=== PATIENT | male | born 1980 | race Caucasian/White ===

== ENCOUNTER 2023-10-20 16:02 | Emergency (ER) | payer BC, SELFPAY ==
[2023-10-20 16:13] VITALS: BP 138/99
[2023-10-20 16:43] LABS: % Basophils 0.5 % (0-2); % Eosinophils 1.8 % (0-6); % Immature Granulocytes 0.3 % (0-0.5); % Lymphocytes 34.3 % (20.5-51.1); % Neutrophils 57.1 % (42.2-75.2); Absolute Basophils 0.1 10^3/uL (0-0.2); Absolute Eosinophils 0.2 10^3/uL (0-0.7); Absolute Lymphocytes 3.3 10^3/uL (1.2-3.4); Absolute Monocytes 0.6 10^3/uL (0.1-0.6); Absolute Neutrophils 5.5 10^3/uL (1.4-6.5); Hematocrit 42.1 % (39.0-52.0); Hemoglobin 13.8 g/dL (13.0-18.0); Mean Corp Hgb Conc. 32.8 g/dL (33.0-37.0); Mean Corpuscular Hgb 29.7 pg (27.0-31.0); Mean Corpuscular Volume 90.7 fL (80.0-94.0); Nucleated Red Blood Cells % 0 % (-); Platelet Count 364 10^3/uL (130-400); Red Blood Cell Count 4.64 10^6/uL (4.70-6.10); Red Cell Dist. Width 12.7 % (11.5-14.5); White Blood Cell Count 9.6 10^3/uL (4.8-10.8)
[2023-10-20 16:55] LABS: ALT (SGPT) 20 U/L (0-50); AST (SGOT) 22 U/L (17-59); Albumin 4.7 g/dl (3.5-5.0); Alkaline Phosphatase 74 U/L (38-126); Blood Urea Nitrogen 16 mg/dl (9-20); Calcium 10.1 mg/dl (8.4-10.2); Carbon Dioxide 27 mmol/L (22-30); Chloride 103 mmol/L (98-107); Glucose 96 mg/dl (70-99); Potassium 4.4 mmol/L (3.5-5.1); Sodium 139 mmol/L (135-145); Total Bilirubin 0.6 mg/dl (0.2-1.3); Total Protein 7.4 g/dl (6.3-8.2); eGFR > 60.00
[2023-10-20 17:09] LABS: Troponin I < 0.012 ng/ml
[2023-10-20 17:49] VITALS: BP 138/90
[2023-10-20 17:50] VITALS: BP 138/90
[2023-10-20 17:53] VITALS: BMI 33.4
[2023-10-20 18:00] VITALS: BP 128/86
--- NOTE | 2023-10-20 18:17 | ED.GENMED ---
History of Present Illness
General
Chief Complaint: Cold/Flu/URI Symptoms
Source: patient
Time Seen by Provider: 10/20/23 18:01
Travel History
Have you had any contact with someone who has COVID-19?: No
Do you have any symptoms of coronavirus? Fever > 100 degrees, chills, cough, shortness of breath, sore throat, loss of taste or smell, muscle aches, or headache?: No
History of Present Illness
History of Present Illness:
43-year-old male with past medical history of hypertension presenting to the emergency department for evaluation of URI-like symptoms that began around Friday of last describing symptoms to be scratchy throat, nasal congestion and some fatigue.
Over the weekend started with a cough productive of a tannish sputum, today felt a little bit of chest tightness prompting him to come to the ER. He states about 2 weeks prior to this he had some mild URI-like symptoms that lasted 4 days and
resolved on their own. Denies any fevers. No known sick contacts, recent travel or recent antibiotics. No other concerns at this time.
Past History
Past History
ED Past Medical History: HTN
ED Past Surgical History: None
Social History
Tobacco: Non-smoker
Alcohol: None
Drug: None
Living: with family
Employment: Employed
Review of Systems
Review of Systems
All Other Systems: ROS reviewed and negative except as documented in HPI and ROS
Phy Exam
Physical Exam
Physical Exam:
GENERAL: Alert , in no apparent distress
EYE: conjunctiva clear
NECK: Supple
ENT: o/p clr, mmm.
CARDIAC: Regular rate and rhythm
LUNGS: Clear breath sounds bilaterally, no acute respiratory distress, no wheezes/rales/rhonchi
NEUROLOGICAL: Alert and oriented
SKIN: Warm and dry, skin intact.
MUSCULOSKELETAL: well perfused.
PSYCH: Normal and appropriate interaction.
Scores
Heart Failure Risk
Heart Failure Risk Score: Not Applicable
Heart Score for Chest Pain Patients
STEMI patient?: Not applicable
Withdrawal Assessment of Alcohol
Withdrawal Assessment Completed?: Not applicable
Course
Orders/Labs/Results
Orders:
Orders
10/20/23 16:09
EKG [Electrocardiogram (*1)] Urgent
Reason for Study: Chest Pain
EKG- Treatment ONCE
10/20/23 16:33
Complete Blood Count/With Diff Urgent
Comprehensive Metabolic Panel Urgent
Troponin I Urgent
10/20/23 18:11
CR Chest - 2 Views Urgent
Comment:
Reason For Exam: URI like symptoms
Abnormal Lab Results
10/20/23
16:33
RBC 4.64 L 10^6/uL
(4.70-6.10)
MCHC 32.8 L g/dL
(33.0-37.0)
10/20/23 16:33
10/20/23 16:33
Vital Signs
Initial and Last Documented VS:
Initial Vital Signs
Temp Pulse Resp BP Pulse Ox
98.3 F 57 16 138/99 98
10/20/23 16:13 10/20/23 16:13 10/20/23 16:13 10/20/23 16:13 10/20/23 16:13
Last Documented Vital Signs
Temp Pulse Resp BP Pulse Ox
98.3 F 64 20 121/96 96
10/20/23 16:13 10/20/23 18:43 10/20/23 18:43 10/20/23 19:17 10/20/23 19:18
MDM/Problems Addressed
Differential Diagnosis Includes:
COVID, flu, other viral URI, pneumonia, no concern for atypical ACS presentation
MDM/Problems Addressed:
43-year-old male presenting emergency department for evaluation of URI-like symptoms that been going on for approximately 1 week. He arrives to the emergency department afebrile and otherwise hemodynamically stable. He is in no acute respiratory
distress. Labs have been initiated in triage and are all within normal limits. EKG nonischemic. Will obtain chest x-ray to evaluate for possible pneumonia. Suspect viral etiology is most likely. Anticipate discharge home with supportive
measures.
*Radiology
Radiology exam reviewed: preliminary read by ED provider (Normal chest x-ray)
*Pulse Oximetry
Patient hypoxic: no
*EKG
Interpreted by ED Provider?: Yes
Comparison EKG: no comparison EKG present
Heart Rate: 56
Rate: bradycardiac
Rhythm: sinus
Ischemia: no ischemia
*Logistics Engineer Interpretation
Rate: normal
Rhythm: sinus
*Critical Care Note
Total Time (30-74mins, 75-104mins- exclusive of procedures): Not Applicable
Patient Management
Escalation/DeEscalation of care consider admission/obs:
Patient's chest x-ray is unremarkable. He remains hemodynamically stable and in no acute distress. Prescription for Medrol pack given. I also prescribed the patient Zithromax for him to take if he remains symptomatic despite the Medrol pack and
if he does not feel he is improving. Patient expressed understanding and is agreeable with this plan. Aware of return precautions emergency department. Stable for discharge home.
ED Attending Note
-
Portions of this chart may have been created with voice recognition software.� Occasional wrong word or��sound alike� substitutions may have occurred due to the inherent limitations of voice recognition software.
Discharge Plan
Departure
Patient Disposition: Home (Routine Discharge)
Date of Disposition: 10/20/23
Time of Disposition: 19:09
Patient with high blood pressure during this ER visit?: Yes
Discharge Problem:
URI (upper respiratory infection)
Instructions: Cough, Adult ED
Prescriptions:
New
methylprednisolone [Medrol (Moshe)] 4 mg tablets,dose pack
4 mg PO DIRECTED Qty: 21 0RF
azithromycin [Zithromax Z-Moshe] 250 mg tablet
250 mg PO DAILY 6 Days Qty: 6 0RF
Rx Instructions:
Take 2 tabs day 1 and 1 tab remaining days
Referrals:
John Bland MD [Family Provider] -
Interventions
Interventions:
*ED COVID-19 Vaccine History Last Done: 10/20/23 16:13
*Nursing Disposition Last Done: 10/20/23 19:21
ED- Pulmonary Assessment Last Done: 10/20/23 17:50
Discharge Date and Time
Discharge Date/Time: 10/20/23 19:22
Print Language: POLISH
[2023-10-20 19:17] VITALS: BP 121/96
== END 2023-10-20 19:22 | disposition home or self-care (01) ==
LOC: EMR 16:02
PROVIDERS: EMERGENCY PHYSICIAN Emergency Medicine; FAMILY PHYSICIAN Family Medicine
DX: J06.9 Acute upper respiratory infection, unspecified (principal); I10 Essential (primary) hypertension
CPT/HCPCS: 99285; 71046; 80053; 84484; 85025; 93005

== ENCOUNTER 2024-07-28 09:31 | Emergency (ER) | payer BC, SELFPAY ==
[2024-07-28 09:42] VITALS: BP 151/99
--- NOTE | 2024-07-28 10:11 | ED.GENMED ---
History of Present Illness
General
Chief Complaint: Breathing Problem
Source: patient
Exam Limitations: none
Time Seen by Provider: 07/28/24 09:53
Nursing documentation reviewed up to this point in time: agreed with
History of Present Illness
History of Present Illness:
44-year-old male with history of hypertension, noncompliant with medication presents for a sudden onset of upper back pain while at work today at 5 AM. Patient says he was just standing there and he suddenly felt 3 out of 10 back discomfort.
Within 15 minutes it became a 8 out of 10 and he felt like he needed to hunch over. He could not get a deep breath. He says that over time the symptoms have eased up and now he has only minimal discomfort. He still feels like he cannot take a
full deep breath although he is not having any painful breathing. He has not had a cough or cold symptoms. No recent long travel but he did drive 3 hours in the car 3 days ago. He has never had a blood clot in his legs or his lungs. There is no
leg swelling. He did take some [id number] 'back pain relief' medication that is an NSAID he has no chronic back pain issues, no coronary artery disease history personally or in his family, he is a former smoker but quit 15 years ago. He
drinks alcohol several times a week
Past History
Past History
ED Past Medical History: HTN
ED Past Surgical History: None
Social History
Tobacco: Non-smoker
Alcohol: None
Drug: None
Living: with family
Employment: Employed
Phy Exam
Physical Exam
Physical Exam:
GENERAL: Alert , in no apparent distress
EYE: pupils equal and reactive
NECK: Supple
ENT: o/p clr, mmm.
CARDIAC: Regular rate and rhythm .
LUNGS: Clear breath sounds bilaterally, no acute respiratory distress, no wheezes/rales/rhonchi
ABDOMEN: Soft, without focal tenderness, no r/g, no cvat, normal bowel sounds
NEUROLOGICAL: Alert and oriented, no focal neuro deficits
SKIN: Warm and dry, skin intact.
MUSCULOSKELETAL: No edema, well perfused. neg darlyn's sign
PSYCH: Normal and appropriate interaction.
Course
Orders/Labs/Results
Orders:
Orders
07/28/24 10:20
Electrocardiogram (*1) Urgent
Reason for Study: Shortness of Breath
CT Chest/abd/pelvis Angio W/wo Urgent
Comment:
Reason For Exam: upper back pain sudden, sob; not pleuritic;
07/28/24 10:21
EKG- Treatment ONCE
07/28/24 10:31
Complete Blood Count/With Diff Urgent
Comprehensive Metabolic Panel Urgent
Lipase Urgent
PTT Urgent
Prothrombin Time Urgent
Troponin I Urgent
07/28/24 10:35
Add On- LAB Urgent
Tests Added?: LIPASE
07/28/24 11:13
COVID-19 Antigen Urgent
Source: Nasal Swab
Influenza A+B Rapid Molecular Urgent
HATTIE Source: Nasal Swab
Specimen Description:
07/28/24 12:39
Troponin I Urgent
07/28/24 13:18
EKG [Electrocardiogram (*1)] Urgent
Reason for Study: Shortness of Breath
EKG- Treatment ONCE
07/28/24 13:42
Metoprolol Xl [Toprol Xl] 25 mg PO NOW STA
Abnormal Lab Results
07/28/24
10:31
WBC 13.4 H 10^3/uL
(4.8-10.8)
Absolute Neuts (auto) 9.5 H 10^3/uL
(1.4-6.5)
Absolute Monos (auto) 1.1 H 10^3/uL
(0.1-0.6)
Lymphocytes % 18.8 L %
(20.5-51.1)
07/28/24 10:31
07/28/24 10:31
Vital Signs
Initial and Last Documented VS:
Initial Vital Signs
Temp Pulse Resp BP Pulse Ox
37.2 C 85 16 151/99 98
07/28/24 09:42 07/28/24 09:42 07/28/24 09:42 07/28/24 09:42 07/28/24 09:42
Last Documented Vital Signs
Temp Pulse Resp BP Pulse Ox
37.2 C 72 20 119/88 96
07/28/24 09:42 07/28/24 13:53 07/28/24 13:53 07/28/24 13:53 07/28/24 13:53
MDM/Problems Addressed
Differential Diagnosis Includes:
aortic dissection, aneurysm, acs, pe
MDM/Problems Addressed:
corina dinenno 44 y/o M
h/o htn, noncompliant
sudden mild to mod upper back pain at work 5 am today with SOB; got intense within about 15 minutes then eased up
here looks comfortable, bp initially 150/100 but down to 122/95
ekg nsr sinus arrhythmia and some artifact v1, v2; downward t wave aVF which is unchanged from last year
1st trop neg
ct C/A/P angio shows some mild ascending aortic ectasia (measuring 4 cm at the level of the pulmonary trunk; descending thoracic aorta at the same level is 2.4 cm )
I SPOKE WITH ED ATTENDING AND DR. KEITH (CT SURGERY) FOR THIS PATIENT
recommend outpatient f/u in [address] surgery after repeat CT scan
good bp/hr control
dr. espinoza recommended metoprolol
given rx for 30 day supp\\ly
strongly encouragd outpatietn f/u
cards f/u also recommended
pt is asytmpaomtic now
his 2nd trop and ekg are neg/unchanged
d/c home
*Critical Care Note
Total Time (30-74mins, 75-104mins- exclusive of procedures): Not Applicable
ED Attending Note
-
Portions of this chart may have been created with voice recognition software.� Occasional wrong word or��sound alike� substitutions may have occurred due to the inherent limitations of voice recognition software.
Discharge Plan
Departure
Patient Disposition: Home (Routine Discharge)
Date of Disposition: 07/28/24
Time of Disposition: 13:31
Patient with high blood pressure during this ER visit?: Yes
Condition: Fair
Covid-19: Not Applicable
Discharge Problem:
Back pain, Aortic ectasia, Hypertension
Instructions: Chest Pain DCA Follow Up
Prescriptions:
New
metoprolol succinate 25 mg tablet extended release 24 hr
25 mg PO DAILY Qty: 30 0RF
No Action
methylprednisolone [Medrol (Moshe)] 4 mg tablets,dose pack
4 mg PO DIRECTED Qty: 21 0RF
azithromycin [Zithromax Z-Moshe] 250 mg tablet
250 mg PO DAILY 6 Days Qty: 6 0RF
Rx Instructions:
Take 2 tabs day 1 and 1 tab remaining days
Referrals:
John Bland MD [Family Provider] -
Dhaval Keith MD [Active] - As needed
Stand Alone Forms: Return to Work
Activity Restrictions/Additional Instructions:
YOUR WORK UP TODAY REVEALS THAT YOUR THORACIC AORTA IS VERY SLIGHTLY DILATED
YOU SHOULD HAVE THIS RE-EVALUATED WITHIN 6 MONTHS WITH ANOTHER CAT SCAN
YOU CAN ASK YOUR FAMILY DOCTOR TO ORDER
THEN AFTER THAT YOU CAN SEE DR. KEITH FROM CARDIOTHORACIC SURGERY IN FOLLOW UP
FOR NOW
IT IS IMPORTANT YOU MANAGE YOUR BLOOD PRESSURE
TAKE METOPROLOL ONCE A DAY 25 MG
FOLLOW UP WITH A FAMILY DOCTOR WITHIN 1 WEEK
CALL TODAY FOR AN APPOINTMENT
YOU WILL NEED REFILLS FOR [facility] BLOOD PRESSURE MEDICATIONS
I ALSO REACHED OUT TO THE CARDIOLOGISTS TO HELP GET AN EXPEDITED APPT WITH THEM TOO - THEY CAN HELP MANAGE YOUR BLOOD PRESSURE
RETURN FOR: SEVERE SUDDEN WORSENING BACK OR CHEST PAIN, SHORTNESS OF BREATH, PASSING OUT ETC
Interventions
Interventions:
*Risk Screen - Suicide Last Done: 07/28/24 09:42
*General Assessment Last Done: 07/28/24 09:42
*Neglect/Abuse Screening Last Done: 07/28/24 09:42
*ED COVID-19 Vaccine History Last Done: 07/28/24 09:42
*Nursing Disposition Last Done: 07/28/24 13:53
ED- Cardiac Assessment Last Done: 07/28/24 10:36
ED- Pulmonary Assessment Last Done: 07/28/24 10:14
Discharge Date and Time
Discharge Date/Time: 07/28/24 13:59
Print Language: ANGOLAN
[2024-07-28 10:13] VITALS: BMI 32.2
[2024-07-28 10:16] VITALS: BP 122/95
[2024-07-28 10:40] LABS: % Basophils 0.7 % (0-2); % Eosinophils 1.6 % (0-6); % Immature Granulocytes 0.3 % (0-0.5); % Lymphocytes 18.8 % (20.5-51.1); % Neutrophils 70.6 % (42.2-75.2); Absolute Basophils 0.1 10^3/uL (0-0.2); Absolute Eosinophils 0.2 10^3/uL (0-0.7); Absolute Lymphocytes 2.5 10^3/uL (1.2-3.4); Absolute Monocytes 1.1 10^3/uL (0.1-0.6); Absolute Neutrophils 9.5 10^3/uL (1.4-6.5); Hematocrit 43.4 % (39.0-52.0); Hemoglobin 14.6 g/dL (13.0-18.0); Mean Corp Hgb Conc. 33.6 g/dL (33.0-37.0); Mean Corpuscular Hgb 30.2 pg (27.0-31.0); Mean Corpuscular Volume 89.7 fL (80.0-94.0); Mean Platelet Volume 9.9 fL (7.4-10.4); Nucleated Red Blood Cells % 0 % (-); Platelet Count 383 10^3/uL (130-400); Red Blood Cell Count 4.84 10^6/uL (4.70-6.10); Red Cell Dist. Width 12.6 % (11.5-14.5); White Blood Cell Count 13.4 10^3/uL (4.8-10.8)
[2024-07-28 10:47] LABS: INR 0.97; PT 13.3 Sec (11.4-14.6)
[2024-07-28 10:48] LABS: APTT 31.9 Sec (23.4-35.0)
[2024-07-28 11:00] LABS: ALT (SGPT) 38 U/L (0-50); AST (SGOT) 26 U/L (17-59); Albumin 4.5 g/dl (3.5-5.0); Alkaline Phosphatase 88 U/L (38-126); Blood Urea Nitrogen 13 mg/dl (9-20); Calcium 9.7 mg/dl (8.4-10.2); Carbon Dioxide 25 mmol/L (22-30); Chloride 104 mmol/L (98-107); Estimated Creatinine Clearance > 125 ml/min; Glucose 90 mg/dl (70-99); Lipase 68 U/L (23-300); Potassium 4.3 mmol/L (3.5-5.1); Sodium 139 mmol/L (135-145); Total Bilirubin 0.9 mg/dl (0.2-1.3); Total Protein 7.4 g/dl (6.3-8.2); eGFR > 60.00
[2024-07-28 11:11] LABS: Troponin I < 0.012 ng/ml
[2024-07-28 11:44] LABS: COVID-19 Antigen Negative (Negative)
[2024-07-28 12:18] VITALS: BP 127/91
[2024-07-28 13:00] VITALS: BP 119/88
[2024-07-28 13:16] LABS: Troponin I < 0.012 ng/ml
[2024-07-28] MEDS: TOPROL XL 25 MG PO (13:45)
[2024-07-28 13:53] VITALS: BP 119/88
== END 2024-07-28 13:59 | disposition home or self-care (01) ==
LOC: EMR 09:31
PROVIDERS: Physician Assistant; EMERGENCY PHYSICIAN Emergency Medicine; FAMILY PHYSICIAN Family Medicine
DX: M54.6 Pain in thoracic spine (principal); I77.819 Aortic ectasia, unspecified site; I10 Essential (primary) hypertension
CPT/HCPCS: 99284; 71275; 74174; 80053; 83690; 84484; 85025; 85610; 85730; 87502; 87811; 93005; Q9967